=== PATIENT | female | born 1975 | race Caucasian/White ===

== ENCOUNTER 2018-05-12 02:45 | Emergency (ER) | payer OTHER ==
[~2018-05-12] VITALS: Ht 170.2 cm; Wt 68.0 kg
[~2018-05-12 02:45] MED LIST: HYDROCODONE-AP1 EAC6 PO
[2018-05-12 02:52] VITALS: BP 126/73
== END 2018-05-12 03:12 | disposition home or self-care (01) ==
LOC: M.ERS 02:45
DX: G43.909 Migraine, unspecified, not intractable, without status migrainosus (principal); R11.2 Nausea with vomiting, unspecified; G89.29 Other chronic pain; M25.551 Pain in right hip; D68.0 Von Willebrand disease; F17.200 Nicotine dependence, unspecified, uncomplicated; Z88.0 Allergy status to penicillin; Z88.2 Allergy status to sulfonamides; Z88.6 Allergy status to analgesic agent

== ENCOUNTER 2020-03-05 00:18 | Emergency (ER) | payer OTHER ==
[~2020-03-05] VITALS: Ht 170.2 cm; Wt 70.3 kg
[2020-03-05] MEDS ORDERED: HYDROCODON-ACE1 EAC7 PO (03:21)
[2020-03-05 03:58] VITALS: BP 120/68
== END 2020-03-05 03:58 | disposition home or self-care (01) ==
LOC: M.ERS 00:18
DX: M16.11 Unilateral primary osteoarthritis, right hip (principal); G43.909 Migraine, unspecified, not intractable, without status migrainosus; G89.29 Other chronic pain; Z90.49 Acquired absence of other specified parts of digestive tract; Z98.890 Other specified postprocedural states; Z88.2 Allergy status to sulfonamides; Z88.6 Allergy status to analgesic agent

== ENCOUNTER 2020-03-30 01:08 | Emergency (ER) | payer OTHER | END 2020-03-30 02:13 | disposition home or self-care (01) | LOC: M.ERS 01:08 | DX: M25.551 Pain in right hip (principal); G89.29 Other chronic pain; R10.31 Right lower quadrant pain; G43.909 Migraine, unspecified, not intractable, without status migrainosus; Z88.6 Allergy status to analgesic agent; Z88.0 Allergy status to penicillin; Z88.2 Allergy status to sulfonamides; Z90.49 Acquired absence of other specified parts of digestive tract; Z98.890 Other specified postprocedural states ==

== ENCOUNTER 2020-04-12 01:49 | Emergency (ER) | payer OTHER ==
[~2020-04-12] VITALS: Ht 170.2 cm; Wt 69.0 kg
[~2020-04-12 01:49] MED LIST changes: +FLEXERIL PO; +HYDROCODON-ACE1 EAC7 PO; +NEURONTIN100 MG PO; +TRAMADOL 50 MG50 MG PO
[2020-04-12] MEDS ORDERED: NEURONTIN100 MG PO (02:05)
[2020-04-12] MEDS ORDERED: TRAMADOL 50 MG50 MG PO (02:05)
[2020-04-12 02:35] VITALS: BP 117/87
== END 2020-04-12 02:35 | disposition home or self-care (01) ==
LOC: M.ERS 01:49
DX: G89.29 Other chronic pain (principal); M25.551 Pain in right hip; G43.909 Migraine, unspecified, not intractable, without status migrainosus; Z90.49 Acquired absence of other specified parts of digestive tract; Z98.890 Other specified postprocedural states; Z88.0 Allergy status to penicillin; Z88.2 Allergy status to sulfonamides; Z88.8 Allergy status to other drugs, medicaments and biological substances

== ENCOUNTER 2020-05-18 03:14 | Emergency (ER) | payer OTHER ==
[~2020-05-18] VITALS: Ht 170.2 cm; Wt 66.7 kg
[2020-05-18 03:41] VITALS: BP 154/76
== END 2020-05-18 03:41 | disposition home or self-care (01) ==
LOC: M.ERS 03:14
DX: M25.551 Pain in right hip (principal); G89.29 Other chronic pain; G43.909 Migraine, unspecified, not intractable, without status migrainosus; Z88.6 Allergy status to analgesic agent; Z88.0 Allergy status to penicillin; Z88.2 Allergy status to sulfonamides; Z90.49 Acquired absence of other specified parts of digestive tract; Z98.890 Other specified postprocedural states

== ENCOUNTER 2021-04-10 06:56 | Emergency (ER) | payer OTHER ==
[~2021-04-10] VITALS: Ht 170.2 cm; Wt 70.3 kg
[2021-04-10 08:13] LABS: ABSOLUTE BASOPHILS 0.1 thou/uL (0.0-0.2); ABSOLUTE LYMPHOCYTES 1.6 thou/uL (0.8-5.3); ABSOLUTE MONOCYTES 0.7 thou/uL (0.0-1.2); ABSOLUTE NEUTROPHILS 5.3 thou/uL (1.6-8.1); BASOPHILS 1.4 %; EOSINOPHILS 0.5 %; HEMATOCRIT 41.6 % (37.0-47.0); HEMOGLOBIN 14.3 gm/dL (12.0-15.0); LYMPHOCYTES 20.6 %; MCH 29.9 pg (26.0-34.0); MCHC 34.5 g/dL (28.0-37.0); MCV 86.7 fL (80.0-100.0); MONOCYTES 8.7 %; MPV 6.9 fl. (7.2-11.1); NUCLEATED RBCS 0 /100WBC; PLATELET COUNT* 344 thou/uL (150-400); POLYS 68.8 %; RDW-CV 13.9 % (10.5-14.5); WBC 7.7 thou/uL (4.0-11.0)
[2021-04-10 08:18] LABS: CALCIUM 8.5 mg/dL (8.5-10.1); CREATININE 0.6 mg/dL (0.6-1.3)
[2021-04-10 08:23] LABS: TOTAL BILIRUBIN 1.1 mg/dL (<0.1-1.0); TOTAL PROTEIN 7.4 g/dL (6.4-8.2)
[2021-04-10] MEDS ORDERED: LIDODERM1 EACH TOP ×2 (10:01→10:43)
[2021-04-10] MEDS ORDERED: ZOFRAN ODT4 MG DISSOLVE ×2 (10:01→10:43)
[2021-04-10] MEDS ORDERED: HYDROCODON-ACE1 EAC7 PO ×2 (10:01→10:43)
[2021-04-10] MEDS ORDERED: FLEXERIL PO ×2 (10:01→10:43)
[2021-04-10 10:11] VITALS: BP 111/54
== END 2021-04-10 10:11 | disposition home or self-care (01) ==
LOC: M.ERS 06:56
PROVIDERS: Emergency Medicine Emergency Medical Services
DX: M54.5 Low back pain (principal); M25.551 Pain in right hip; G43.909 Migraine, unspecified, not intractable, without status migrainosus; M79.18 Myalgia, other site; G89.29 Other chronic pain; Z88.6 Allergy status to analgesic agent; Z88.0 Allergy status to penicillin; Z88.2 Allergy status to sulfonamides; Z90.49 Acquired absence of other specified parts of digestive tract; Z98.890 Other specified postprocedural states

== ENCOUNTER 2021-04-12 22:00 | Emergency (ER) | payer OTHER ==
[~2021-04-12] VITALS: Ht 170.2 cm; Wt 70.3 kg
[~2021-04-12 22:00] MED LIST changes: +LIDODERM1 EACH TOP; +ZOFRAN ODT4 MG DISSOLVE
[2021-04-12 22:02] VITALS: BP 109/68
[2021-04-12] MEDS ORDERED: MEDROLDOSEPACK PO (23:03)
== END 2021-04-12 23:29 | disposition home or self-care (01) ==
LOC: M.ERS 22:00
DX: M25.551 Pain in right hip (principal); G89.29 Other chronic pain; M54.5 Low back pain; G43.909 Migraine, unspecified, not intractable, without status migrainosus; Z98.890 Other specified postprocedural states; Z90.49 Acquired absence of other specified parts of digestive tract; Z88.0 Allergy status to penicillin; Z88.2 Allergy status to sulfonamides; Z88.6 Allergy status to analgesic agent